=== PATIENT | female | born 1950 | race Caucasian/White ===

== ENCOUNTER → 2020-11-01 | Outpatient (CLI) | payer OTHER ==
[~2020-11-01] MED LIST: ESTR2 PO; FISH1000 PO; LEVSOD75 PO
== END | disposition home or self-care (01) ==
LOC: LAB 14:48 → LAB SHORT 14:48
DX: M67.442 Ganglion, left hand (principal)
CPT/HCPCS: 88305

== ENCOUNTER 2022-01-02 09:03 | Day surgery (SDC) | payer OTHER ==
[~2022-01-02] VITALS: Ht 170.2 cm; Wt 64.5 kg
[~2022-01-02 09:03] MED LIST changes: +ESTRADIOL0.5 MG PO; +EUTHYROX50 MCG PO; +FLONASE ALLERG9.9 M2; +SYMBICORT 80-10.2 GM INH; +Ventolin/Prove6.7 GM INH
== END 2022-01-02 11:20 | disposition home or self-care (01) ==
LOC: ORSCSDS 09:03
PROVIDERS: Surgery
PROC: 0DJD8ZZ Inspection of Lower Intestinal Tract, Via Natural or Artificial Opening Endoscopic (ICD-10-PCS; principal; 2022-01-02 10:15)
DX: K62.5 Hemorrhage of anus and rectum (principal); Z80.0 Family history of malignant neoplasm of digestive organs; K64.8 Other hemorrhoids; E78.5 Hyperlipidemia, unspecified; E78.00 Pure hypercholesterolemia, unspecified; E03.9 Hypothyroidism, unspecified; J45.909 Unspecified asthma, uncomplicated; Z79.899 Other long term (current) drug therapy
CPT/HCPCS: J2704; J7120

== ENCOUNTER → 2022-10-07 | Outpatient (CLI) | payer OTHER | END | disposition home or self-care (01) | LOC: LAB SHORT 07:40 → PLD 07:40 | DX: M67.442 Ganglion, left hand (principal) | CPT/HCPCS: 88304 ==

== ENCOUNTER → 2023-02-09 | Outpatient (CLI) | payer OTHER | END | disposition home or self-care (01) | LOC: LAB SHORT 11:59 → PLD 11:59 | DX: L57.0 Actinic keratosis (principal) | CPT/HCPCS: 88305 ==